=== PATIENT | female | born 1970 | race Caucasian/White ===

== ENCOUNTER 2016-10-27 18:49 | Emergency (ER) | payer MEDICAID, OTHER ==
[~2016-10-27] VITALS: Ht 160 cm; Wt 67.0 kg
[2016-10-27 18:51] VITALS: Ht 160 cm; Wt 67.0 kg
[2016-10-27] MEDS ORDERED: ALBUTEROL 0.083% (NEB) 2.5 MG/3 ML AMP HHN STA (19:24)
[2016-10-27] MEDS ORDERED: predniSONE 20 MG TAB PO ONE (19:30)
[2016-10-27] MEDS ORDERED: PRED20TA PO (20:01)
[2016-10-27] MEDS ORDERED: AZIT250T94 PO (20:01)
--- NOTE | 2016-10-27 20:05 | ERD ---
ER Documentation Chief Complaint Date/Time DATE: 10/27/16 TIME: 20:02 Chief Complaint cough x 5 days, back pain HPI This 45-year-old female presents with a productive cough last 5 days. She is her primary doctor who prescribed Claritin, Ventolin, promethazine and ibuprofen she has persistent wheezing and coughing. As fevers, chest pain, vomiting, abdominal pain, diarrhea. ROS All systems reviewed and are negative except as per history of present illness. Medications Home Meds Active Scripts Azithromycin* (Zithromax*) 250 Mg Tablet, 250 MG PO .ZPACK DIRECTED, #6 TAB TAKE 500 MG (2 TABS) THE FIRST DAY THEN 250 MG (1 TAB) DAYS 2-5 Prov:TROY HERRERA MD 10/27/16 Prednisone* (Prednisone*) 20 Mg Tab, 40 MG PO DAILY for 4 Days, TAB Start October 28, 2016 Prov:TROY HERRERA MD 10/27/16 Allergies Allergies: Coded Allergies: No Known Allergy (Unverified , 10/27/16) PMhx/Soc Hx Respiratory Disorders: Yes (asthma) Hx Alcohol Use: No Hx Substance Use: No Hx Tobacco Use: No Smoking Status: Never smoker Physical Exam Vitals Vital Signs Date Time Temp Pulse Resp B/P Pulse Ox O2 Delivery O2 Flow Rate FiO2 10/27/16 18:51 99.3 116 20 137/71 98 Physical Exam Const: [], [id number] per Head: Atraumatic Eyes: Normal Conjunctiva ENT: Normal External Ears, Nose and Mouth. Neck: Full range of motion..~ No meningismus. Resp: Clear to auscultation bilaterally. Diffuse mild wheezing with a wheezy cough no rales or retractions appreciated. Cardio: Regular rate and rhythm, no murmurs Abd: Soft, non tender, non distended. Normal bowel sounds Skin: No petechiae or rashes Back: No midline or flank tenderness Ext: No cyanosis, or edema Neur: Awake and alert Psych: Normal Mood and Affect Results 24 hrs Current Medications Medications (Trade) Dose Ordered Sig/Janel Route PRN Reason Start Time Stop Time Status Last Admin Dose Admin Prednisone (Prednisone) 60 mg ONCE ONCE PO 10/27/16 19:30 10/27/16 19:31 DC 10/27/16 19:30 Albuterol (Proventil 0.083% (Neb)) 5 mg ONCE STAT HHN 10/27/16 19:24 10/27/16 19:25 DC Procedures/MDM Chest X-ray 1V Interpreted by me: Soft Tissue: No acute abnormalities Bones: No acute abnormalities Mediastinum/Cardiac Silhouette/Lungs: [No acute abnormalities]. Impression- normal 1 view chest x-ray Patient was given prednisone 60 mg by mouth given albuterol treatment. Patient clear lungs on serial exam. Patient presents with bronchitis with wheezing without evidence of pulmonary aneurysm, acute cord syndrome, pneumonia, respiratory distress, hypoxemia. She will treated with prednisone and Zithromax at home with instructions to continue Ventolin. The patient was stable with no new complaints during the ER course. Clinically, there is no current evidence to suggest meningitis, sepsis, acute abdomen, pneumonia, acute coronary syndrome, pulmonary embolism, or any other emergent condition appearing to require further evaluation or hospitalization. The patient should certainly return for any new or worsening symptoms per the aftercare instructions. They should otherwise follow-up with her primary care doctor for reevaluation this week. Departure Diagnosis: Primary Impression: Bronchitis Condition: Stable Patient Instructions: Bronchitis With Wheezing (Adult) Additional Instructions: X-ray normal. Cheque otro vez con schuler doctor primario en el proximo jenkins or regresa para mas o nueva simptomas. USE ALBUTEROL QUE TIENE EN TROY NOLAND MD Oct 27, 2016 20:05
--- NOTE | 2016-10-27 20:18 | RADRPT ---
PROCEDURE: XR Chest. CLINICAL INDICATION: Shortness of breath. TECHNIQUE: PA and Lateral views of the chest were obtained. COMPARISON: None. FINDINGS: The soft tissues are normal. The bony elements are normal. The heart, cardiomediastinal silhouette and hilar structures are normal. The pulmonary vasculature is normal. There is a left-sided aorta. The lungs are clear. The costophrenic angles are normal. IMPRESSION: 1. Normal chest x-ray. RPTAT:AAJJ Physician Wilfrido Date Time Electronically viewed and signed by Reinaldo Licona Physician on 10/27/2016 20:18 PENNY/
[2016-10-27 20:33] VITALS: PULSE 100; RESP 22
== END 2016-10-27 20:33 | disposition home or self-care (01) ==
LOC: FTE 18:49
DX: J20.9 Acute bronchitis, unspecified (principal); J45.901 Unspecified asthma with (acute) exacerbation
CPT/HCPCS: 71010; 94664; J7512; Z7502; Z7610

== ENCOUNTER 2016-10-29 18:40 | Emergency (ER) | payer MEDICAID ==
[~2016-10-29] VITALS: Ht 160 cm; Wt 66.0 kg
[~2016-10-29 18:40] MED LIST: AZIT250T94 PO; PRED20TA PO
[2016-10-29 19:17] VITALS: Ht 160 cm; Wt 66.0 kg
[2016-10-29] MEDS ORDERED: AMO500 PO (20:43)
--- NOTE | 2016-10-29 20:48 | ERD ---
ER Documentation Chief Complaint Date/Time DATE: 10/29/16 TIME: 20:44 Chief Complaint cough seen tuesday dx with bronchitis, doesnt think meds arent helping HPI This 45-year-old female presents emergency room for continued cough with some shortness of breath during cough. She was seen here 3 days ago and given azithromycin. She is only finished 2 days of the course but believes is not working properly. She has had no fevers or chills. She has no chest pain. She has no lightheadedness. So she knows she is otherwise healthy. And prior to this cough for the last few days she felt completely fine. ROS All systems reviewed and are negative except as per history of present illness. Medications Home Meds Active Scripts Amoxicillin* (Amoxicillin*) 500 Mg Cap, 500 MG PO TID for 10 Days, CAP Prov:HUDSON HOFFMAN DO 10/29/16 Azithromycin* (Zithromax*) 250 Mg Tablet, 250 MG PO .ZPACK DIRECTED, #6 TAB TAKE 500 MG (2 TABS) THE FIRST DAY THEN 250 MG (1 TAB) DAYS 2-5 Prov:TROY HERRERA MD 10/27/16 Prednisone* (Prednisone*) 20 Mg Tab, 40 MG PO DAILY for 4 Days, TAB Start October 28, 2016 Prov:TROY HERRERA MD 10/27/16 Allergies Allergies: Coded Allergies: No Known Allergy (Unverified , 10/27/16) PMhx/Soc Medical and Surgical Hx: pt denies Surgical Hx Hx Respiratory Disorders: Yes (asthma) Hx Alcohol Use: No Hx Substance Use: No Hx Tobacco Use: No Smoking Status: Never smoker Physical Exam Vitals Vital Signs Date Time Temp Pulse Resp B/P Pulse Ox O2 Delivery O2 Flow Rate FiO2 10/29/16 19:17 98.7 81 20 136/69 99 Physical Exam Const: [] No distress, pleasant appearing and calm Head: Atraumatic Eyes: Normal Conjunctiva ENT: Normal External Ears, Nose and Mouth. Resp: Clear to auscultation bilaterally, no wheezes, no rales. Cardio: Regular rate and rhythm, no murmurs Skin: No petechiae or rashes Ext: No cyanosis, or edema Neur: Awake and alert and oriented 3, no focal deficit Psych: Normal Mood and Affect Procedures/MDM Acute bronchitis that was not completely resolved in 2 days. Patient did cough a couple times in the room. With a normal sounding dry cough. She is not immunocompromised and appears well and has stable vital signs. I am going to add amoxicillin to the azithromycin to add broader coverage for her bronchitis. Also instructed to follow-up with primary care doctor which I provided resources in the next few days. Told to return emergency room for any fevers, chest pain or any other concerning change. Departure Diagnosis: Primary Impression: Acute bronchitis Condition: Stable Patient Instructions: Acute Bronchitis Referrals: [facility] YOU HAVE RECEIVED A MEDICAL SCREENING EXAM AND THE RESULTS INDICATE THAT YOU DO NOT HAVE A CONDITION THAT REQUIRES URGENT TREATMENT IN THE EMERGENCY DEPARTMENT. FURTHER EVALUATION AND TREATMENT OF YOUR CONDITION CAN WAIT UNTIL YOU ARE SEEN IN YOUR DOCTORS OFFICE WITHIN THE NEXT 1-2 DAYS. IT IS YOUR RESPONSIBILITY TO MAKE AN APPOINTMENT FOR FOLOW-UP CARE. IF YOU HAVE A PRIMARY DOCTOR --you should call your primary doctor and schedule an appointment IF YOU DO NOT HAVE A PRIMARY DOCTOR YOU CAN CALL OUR PHYSICIAN REFERRAL HOTLINE AT IF YOU CAN NOT AFFORD TO SEE A PHYSICIAN YOU CAN CHOSE FROM THE FOLLOWING [facility] [address] [facility]. [facility] [address] [facility] [facility] [address] [facility] [facility] [address] [facility]. [facility] [address] [facility]. [facility]. [address] Additional Instructions: Llame al doctor MAANA y paris emanuel ANMOL PARA DENTRO DE 2-3 COPPOLA.Dgale a la secretaria que nosotros le instruimos hacer esta anmol.Avise o llame si schuler condicin se empeora antes de la anmol. Regresa aqui si peor o no mejor. HUDSON HOFFMAN DO Oct 29, 2016 20:48
== END 2016-10-29 20:56 | disposition home or self-care (01) ==
LOC: FTE 18:40
DX: J20.9 Acute bronchitis, unspecified (principal); J45.909 Unspecified asthma, uncomplicated
CPT/HCPCS: 99283